=== PATIENT | female | born 1960 | race African-American/Black ===

== ENCOUNTER 2024-03-02 21:35 | Inpatient (IN) | payer OTHER ==
[2024-03-02 22:22] VITALS: BMI 33.7
[2024-03-03] MEDS ORDERED: ONDANSETRON *ODT* 4 MG TABLET SL PRN (02:38)
[2024-03-03] MEDS ORDERED: ACETAMINOPHEN 325 MG TABLET (FP) PO PRN (02:38)
[2024-03-03] MEDS ORDERED: LOPERAMIDE HCL 2 MG CAPSULE PO PRN (02:38)
[2024-03-03] MEDS ORDERED: BISMUTH SUBSALICYLATE 524 MG/30 ML PO PRN (02:38)
[2024-03-03] MEDS ORDERED: NALOXONE (NARCAN) HCL 4 MG/0.1 ML SPRAY NS PRN (02:38)
[2024-03-03] MEDS ORDERED: IBUPROFEN 400 MG TABLET (FP) PO PRN (02:38)
[2024-03-03] MEDS ORDERED: hydrOXYzine PAMOATE 25 MG CAPSULE (FP) PO PRN (02:38)
[2024-03-03] MEDS ORDERED: IBUPROFEN 600 MG TABLET (FP) PO PRN (02:38)
[2024-03-03] MEDS ORDERED: BENZONATATE 200 MG CAPSULE PO PRN (02:38)
[2024-03-03] MEDS ORDERED: MAG HYDROX/AL HYDROX/SIMETH 30 ML UNIT-DOSE CUP PO PRN (02:38)
[2024-03-03] MEDS ORDERED: NICOTINE POLACRILEX 2 MG GUM BUC PRN (02:38)
[2024-03-03] MEDS ORDERED: NALOXONE HCL 0.4 MG/ML VIAL IM PRN (02:38)
[2024-03-03] MEDS ORDERED: BENZOCAINE/MENTHOL (CHLORASEPTIC ) LOZENGE MM PRN (02:38)
[2024-03-03] MEDS ORDERED: guaiFENesin 600 MG TABLET.ER (FP) PO PRN (02:38)
[2024-03-03] MEDS: INSULIN ASPART SLIDING SCALE (NOVOLOG) 1 VIAL SQ SCH (06:01)
[2024-03-03] MEDS: ALBUTEROL SO4 HFA INHALER IH SCH (09:10)
[2024-03-03] MEDS: PRENATAL VITAMINS W/ FOLIC ACID TABLET (FP) PO SCH (09:17)
[2024-03-03] MEDS: NICOTINE 21 MG/24 HOURS TOPICAL PATCH TD SCH (09:17)
[2024-03-03] MEDS: LISINOPRIL 10 MG TABLET PO SCH (09:21)
[2024-03-03] MEDS: levETIRAcetam 250 MG TABLET PO SCH (09:22)
[2024-03-03] MEDS ORDERED: FLUTICASONE/UMECLIDIN/VILANTER(100-62.5-25 TRELEGY ELLIPTA) INAHLER IH SCH (10:00)
[2024-03-03] MEDS: NALTREXONE HCL 50 MG TABLET PO SCH (10:35)
[2024-03-03] MEDS: FLUTICASONE/UMECLIDIN/VILANTER(100-62.5-25 TRELEGY ELLIPTA) INAHLER IH SCH (10:35)
[2024-03-03] MEDS: LORazepam 2 MG TABLET PO SCH (11:23)
[2024-03-03] MEDS ORDERED: INSULIN (NOVOLOG) ASPART 100 UNITS/ML 10ML VIAL ONE ×2 (17:04→21:03)
[2024-03-03] MEDS: THIAMINE 100 MG TABLET PO SCH (22:02)
[2024-03-03] MEDS: MELATONIN 5 MG TABLETS PO SCH (22:03)
[2024-03-03] MEDS: INSULIN (LEVEMIR) 100 UNITS/ML UNITS SQ SCH (22:05)
[2024-03-04 11:51] LABS: HEMATOCRIT 42.9 % (32.4-45.2); HEMOGLOBIN 14.4 GM/dL (10.7-15.3); MCH 30.6 pg (25.7-33.7); MCHC 33.6 g/dl (32.0-36.0); MEAN PLT VOLUME 8.7 fl (7.5-11.1); PLATELET COUNT 390 10^3/uL (134-434); POTASSIUM 4.2 mmol/L (3.5-5.1); RBC 4.71 M/mm3 (3.60-5.2); RDW 13.6 % (11.6-15.6); WHITE BLOOD COUNT 6.9 K/mm3 (4.0-10.0)
[2024-03-04 11:54] LABS: ALBUMIN 3.1 g/dl (3.4-5.0); CALCIUM 9.8 mg/dL (8.5-10.1)
[2024-03-04 11:55] LABS: BLOOD UREA NITROGEN 7.4 mg/dL (7-18)
[2024-03-04 11:58] LABS: CREATININE 0.6 mg/dL (0.55-1.3)
[2024-03-04 11:59] LABS: BILIRUBIN,TOTAL 0.5 mg/dL (0.2-1); TOT PROT 6.4 g/dl (6.4-8.2)
[2024-03-04] MEDS ORDERED: INSULIN (NOVOLOG) ASPART 100 UNITS/ML 10ML VIAL ONE ×2 (18:20→22:23)
[2024-03-05] MEDS: LORazepam 1 MG TABLET PO SCH (05:11)
[2024-03-05] MEDS ORDERED: INSULIN (NOVOLOG) ASPART 100 UNITS/ML 10ML VIAL ONE ×2 (16:56→23:30)
[2024-03-05] MEDS: LORazepam 1 MG TABLET PO PRN (17:20)
[2024-03-06] MEDS ORDERED: LORazepam 0.5 MG TABLET PO PRN
[2024-03-06] MEDS: LORazepam 0.5 MG TABLET PO SCH (05:56)
[2024-03-06] MEDS ORDERED: INSULIN (NOVOLOG) ASPART 100 UNITS/ML 10ML VIAL ONE (10:57)
[2024-03-06] MEDS: MAGNESIUM HYDROX 2400MG/30ML ORAL SUSPENSION 30 ML CUP PO PRN (22:03)
[2024-03-07] MEDS: LORazepam 0.5 MG TABLET PO ONE (05:41)
[2024-03-07] MEDS: CLOTRIMAZOLE 1% VAGINAL CREAM WITH APPLICATOR 45 GM TUBE VG SCH (22:09)
[2024-03-07] MEDS: POLYETHYLENE GLYCOL (HEALTHYLAX) 3350 17 GM PACKET PO PRN (22:09)
[2024-03-08 16:44] VITALS: BP 143/84; PULSE 75; RESP 17; TEMP 98
[2024-03-08] MEDS ORDERED: INSULIN (LEVEMIR) 100 UNITS/ML UNITS SQ SCH (22:00)
== END 2024-03-08 16:05 | disposition home or self-care (01) | DRG 897 ==
LOC: YASAS 21:35 → Y6N 03-03 03:19
PROVIDERS: ADMIT Allergy & Immunology; ATTEND Surgery
PROC: HZ2ZZZZ Detoxification Services for Substance Abuse Treatment (ICD-10-PCS; principal; 2024-03-03)
DX: F10.230 Alcohol dependence with withdrawal, uncomplicated (principal); I10 Essential (primary) hypertension; E11.9 Type 2 diabetes mellitus without complications; J45.20 Mild intermittent asthma, uncomplicated; G40.909 Epilepsy, unspecified, not intractable, without status epilepticus; B37.31 Acute candidiasis of vulva and vagina; E78.5 Hyperlipidemia, unspecified; J44.9 Chronic obstructive pulmonary disease, unspecified; G47.30 Sleep apnea, unspecified; Z79.4 Long term (current) use of insulin
CPT/HCPCS: 36415; 80053; 80177; 80305; 80307; 82962; 85027; 86780; 87811; 93005; 93010